=== PATIENT | female | born 1995 | race Two or more races ===

== ENCOUNTER 2018-01-18 05:03 | Observation (INO) | payer OTHER ==
[2018-01-18 06:15] LABS: ABSOLUTE LYMPHOCYTES (AUTO) 1.7 10^3/uL (0.5-4.7); ABSOLUTE MONOCYTES (AUTO) 0.9 10^3/uL (0.1-1.4); ABSOLUTE NEUT (AUTO) 13.7 10^3/uL (1.7-8.2); BASOPHILS % (AUTO) 0.2 % (0-2); EOSINOPHILS % (AUTO) 0.2 % (0-6); HEMOGLOBIN 12.3 g/dL (12.0-15.5); LYMPHOCYTES % (AUTO) 10.4 % (13-45); MEAN CORPUSCULAR HGB CONC 34.3 g/dL (32.0-36.0); MEAN CORPUSCULAR VOLUME 82 fl (80-97); MONOCYTES % (AUTO) 5.2 % (3-13); PLATELET COUNT 270 10^3/uL (150-450); RED CELL DISTRIBUTION WIDTH 15.5 % (11.5-14.0); TOTAL CELLS COUNTED % (AUTO) 100 %; WHITE BLOOD COUNT 16.4 10^3/uL (4.0-10.5)
[2018-01-18 06:30] LABS: APPEARANCE,URINE SLIGHTLY-CLOUDY; BILIRUBIN,URINE NEGATIVE (NEGATIVE); COLOR,URINE YELLOW; GLUCOSE, URINE NEGATIVE (NEGATIVE); KETONES,URINE NEGATIVE (NEGATIVE); LEUKOCYTE ESTERASE,URINE TRACE (NEGATIVE); NITRITE,URINE NEGATIVE (NEGATIVE); PROTEIN,URINE 100 mg/dL (NEGATIVE); URINE SPECIFIC GRAVITY 1.014; UROBILINOGEN,URINE NEGATIVE mg/dL (<2.0)
[2018-01-18 06:40] LABS: URINE AMPHETAMINES SCREEN NEGATIVE; URINE BARBITURATES SCREEN NEGATIVE; URINE BENZODIAZEPINES SCREEN NEGATIVE; URINE COCAINE SCREEN NEGATIVE; URINE MARIJUANA (THC) SCREEN NEGATIVE; URINE METHADONE SCREEN NEGATIVE; URINE PHENCYCLIDINE SCREEN NEGATIVE
[2018-01-18] MEDS ORDERED: CEFTRIAXONE INJ 1000 MG VIAL ONE (07:00)
[2018-01-18] MEDS: RINGERS SOLUTION,LACTATED 1,000 ML IV PRN ×2 (07:02→19:59)
[2018-01-18] MEDS ORDERED: ACETAMINOPHEN 325 MG TABLET PO PRN ×2 (07:40→08:29)
[2018-01-18] MEDS ORDERED: ACETAMINOPHEN 325 MG TABLET ONE (07:42)
[2018-01-18] MEDS ORDERED: CEFTRIAXONE 1 GM/D5W RTU 1 GM/50 ML RTUPB IV SCH (10:00)
[2018-01-19] MEDS: RINGERS SOLUTION,LACTATED 1,000 ML IV PRN (04:16)
[2018-01-19] MEDS ORDERED: CEFTRIAXONE SODIUM 1,000 MG in NORMAL SALINE 50 ML IV SCH (10:00)
[2018-01-19 13:49] LABS: ABSOLUTE LYMPHOCYTES (AUTO) 1.7 10^3/uL (0.5-4.7); ABSOLUTE MONOCYTES (AUTO) 0.5 10^3/uL (0.1-1.4); ABSOLUTE NEUT (AUTO) 8.6 10^3/uL (1.7-8.2); BASOPHILS % (AUTO) 0.2 % (0-2); EOSINOPHILS % (AUTO) 0.3 % (0-6); HEMATOCRIT 36.9 % (36.0-47.0); HEMOGLOBIN 12.7 g/dL (12.0-15.5); LYMPHOCYTES % (AUTO) 15.8 % (13-45); MEAN CORPUSCULAR HEMOGLOBIN 28.3 pg (27.0-33.4); MEAN CORPUSCULAR HGB CONC 34.5 g/dL (32.0-36.0); MEAN CORPUSCULAR VOLUME 82 fl (80-97); MONOCYTES % (AUTO) 4.8 % (3-13); PLATELET COUNT 306 10^3/uL (150-450); RED BLOOD COUNT 4.51 10^6/uL (3.72-5.28); SEGMENTED NEUTROPHILS % (AUTO) 78.9 % (42-78); TOTAL CELLS COUNTED % (AUTO) 100 %
--- NOTE | 2018-01-19 14:15 | PDOC PROGRESS REPORT ---
Subjective Progress Note for:: 01/19/18 Subjective:: denies dysuria, denies any pain Reason For Visit: PYELONEPHRITIS-22 WKS Physical Exam - Physical Exam Vital Signs: Temp Pulse Resp BP Pulse Ox 98.4 F 95 15 124/61 98 01/19/18 11:33 01/19/18 11:33 01/19/18 11:33 01/19/18 11:33 01/19/18 11:33 Intake & Output 01/18/18 01/19/18 01/20/18 06:59 06:59 06:59 Intake Total 2900 Balance 2900 Weight 77.8 kg General appearance: PRESENT: no acute distress, cooperative Respiratory exam: ABSENT: decreased breath sounds Additional comments: no CVAT. Result Laboratory Results: 01/19/18 13:37 01/19/18 13:37 WBC 11.0 H RBC 4.51 Hgb 12.7 Hct 36.9 MCV 82 MCH 28.3 MCHC 34.5 RDW 16.0 H Plt Count 306 Seg Neutrophils % 78.9 H Lymphocytes % 15.8 Monocytes % 4.8 Eosinophils % 0.3 Basophils % 0.2 Absolute Neutrophils 8.6 H Absolute Lymphocytes 1.7 Absolute Monocytes 0.5 Absolute Eosinophils 0.0 Absolute Basophils 0.0 Assessment & Plan - Diagnosis (1) Pyelonephritis affecting Is this a current diagnosis for this admission?: Yes - Plan Summary Plan Summary: discussed with dr snyder, CBC normal and pt asymptomatic. will discharge today
[2018-01-19 15:21] VITALS: BP 118/64
--- NOTE | 2018-01-19 16:47 | PDOC DISCHARGE SUMMARY ---
General - Admit/Disc Date/PCP Admission Date/Primary Care Provider: 01/18/18 08:38 JORGE KANG MD Discharge Date: 01/19/18 - Discharge Diagnosis (1) Pyelonephritis affecting Is this a current diagnosis for this admission?: Yes (2) Pyelonephritis affecting Is this a current diagnosis for this admission?: Yes - Additional Information Discharge Diet: Regular Home Medications: Vit Calc,Iron,Folic [ Vitamins] 1 each PO DAILY 01/18/18 History of Present Illness History of Present Illness: PERLA AQUINO is a 22 year old female admitted with right flank pain (H&P currently not available) Hospital Course Hospital Course: hospital stay less than 24 hours Physical Exam - Physical Exam Vital Signs: Temp Pulse Resp BP Pulse Ox 98.4 F 95 15 118/64 98 01/19/18 14:57 01/19/18 14:57 01/19/18 14:57 01/19/18 14:49 01/19/18 14:57 Intake & Output 01/18/18 01/19/18 01/20/18 06:59 06:59 06:59 Intake Total 2900 Balance 2900 Weight 77.8 kg Additional comments: no CVAT Result Laboratory Results: 01/19/18 13:37 01/19/18 13:37 WBC 11.0 H RBC 4.51 Hgb 12.7 Hct 36.9 MCV 82 MCH 28.3 MCHC 34.5 RDW 16.0 H Plt Count 306 Seg Neutrophils % 78.9 H Lymphocytes % 15.8 Monocytes % 4.8 Eosinophils % 0.3 Basophils % 0.2 Absolute Neutrophils 8.6 H Absolute Lymphocytes 1.7 Absolute Monocytes 0.5 Absolute Eosinophils 0.0 Absolute Basophils 0.0 Plan Time Spent: Less than 30 Minutes - discharged
== END 2018-01-19 15:30 | disposition home or self-care (01) ==
LOC: LC 05:03 → LR 08:38 → 2N 14:16
PROVIDERS: ADMIT Obstetrics & Gynecology; ATTEND Obstetrics & Gynecology
DX: O23.02 Infections of kidney in pregnancy, second trimester (principal); Z3A.22 22 weeks gestation of pregnancy
CPT/HCPCS: 36415 ×2; 87086; 85025 ×2; 81001; 80307; J0696 ×3; J7120 ×2